=== PATIENT | male | born 1975 | race Caucasian/White ===

== ENCOUNTER 2021-10-18 05:07 | Emergency (ER) | payer SELFPAY ==
[2021-10-18 05:07] VITALS: BP 154/85; PULSE 76; RESP 14; TEMP 36.5; O2SAT 97
--- NOTE | 2021-10-18 05:15 | PC.NURSE ---
ERP walked into room and assessed pt. ERP instructed pt of possible I&D to the site. Pt stated since it was not his guts he was ready to leave. RN instructed pt on benefits of receiving the I&D and the risks of signing out AMA including infection, increased pain, disfigurement and disability, and up to . Pt understood the risks of signing out AMA and still signed out AMA.
--- NOTE | 2021-10-18 05:18 | ED.GENADULT ---
HPI - General Adult General Chief complaint: Skin/Abscess/Foreign Body Stated complaint: abscess Time Seen by Provider: 10/18/21 05:15 Source: patient and family Mode of arrival: ambulatory History of Present Illness HPI narrative: Mustapha came in because he thought his guts were falling out. I stepped into the room while the nurse was ding the intake and he showed me his abdomen that was beefy red, swollen. I then left so the nurse could finish his intake. By the time I returned a few minutes later he decided he wanted to leave AMA. Related Data Home Medications Medication Instructions Recorded Confirmed No Home Medications 10/18/21 10/18/21 Allergies Allergy/AdvReac Type Severity Reaction Status Date / Time No Known Allergies Allergy Verified 10/18/21 05:12 Review of Systems Review of Systems: ROS unobtainable: Yes other (Left AMA before ROS could be completed. ) Exam Const: General: no acute distress and alert Orientation/consciousness: patient oriented x3 Limitations: No altered mental status HENMT: Head: normal to inspection Other: atrauamtic Eyes: Pupils: Equal, round and reactive pupils present Neck: Neck: normal visual inspection Chest: Chest palpation & inspection: normal inspection of the chest Resp: Effort & Inspection: normal respiratory effort GI: Other: Lower central abdomen had a several cm area of induration with swelling and fluctuance and was TTP Skin: Other: See abdomen Neuro: General: patient oriented x3, moves all extremities and no meningeal signs Extrem: General: normal to inspection Psych: Affect: Anxious affect present Course Course Emergency Course: I recommended an I&D as well as antibiotics and he was told the infection could get worse. Despite this he signed out AMA very fast and left. Discharge Plan Discharge Clinical Impression: Abscess of skin or subcutaneous tissue, Cellulitis Patient Disposition: Left Against Medical Advice Condition: Serious Instructions: Abscess (ED) Additional Instructions: Please feel free to return at any time. Prescriptions: No Action No Home Medications RF: 0 Follow-up/Referrals: UNKNOWN,DOCTOR [Primary Care Provider] -
== END 2021-10-18 05:19 | disposition left against medical advice (07) ==
LOC: CHSED 05:24
PROVIDERS: Emergency Provider Family Medicine
DX: L02.91 Cutaneous abscess, unspecified (principal)
CPT/HCPCS: 99281; 99282